=== PATIENT | female | born 1975 | race Caucasian/White ===

== ENCOUNTER → 2018-05-20 | Outpatient (CLI) | payer OTHER ==
[~2018-05-20] MED LIST: CONRAY-43 43% 50ML VIAL (Q9960) As Ordered; PROHANCE 279.3MG/ML 5ML VIAL (A9576) As Ordered
== END ==
LOC: M RADPRO 06:29
DX: M24.151 Other articular cartilage disorders, right hip (principal); M25.451 Effusion, right hip; D25.9 Leiomyoma of uterus, unspecified; M25.551 Pain in right hip
CPT/HCPCS: 27093